=== PATIENT | male | born 1990 | race African-American/Black ===

== ENCOUNTER 2021-04-13 00:13 | Emergency (ER) | payer OTHER ==
[~2021-04-13] VITALS: Ht 177.8 cm; Wt 70.3 kg
[2021-04-13] MEDS ORDERED: ONDANSETRON 4 MG/2 ML (SDV) Z0FRAN IVP STA (00:20)
[2021-04-13] MEDS ORDERED: PANTOPRAZOLE 40 MG (PROTONIX) VIAL IV STA (00:20)
[2021-04-13] MEDS ORDERED: NS IV 1000 ML 1,000 ML IV STA (00:20)
--- NOTE | 2021-04-13 00:32 | ED General ---
General Stated Complaint: VOMITING Source of Information: Patient, EMS, Police Exam Limitations: Other (pt is poorly cooperative with exam and history) History of Present Illness Date Seen by Provider: Apr 13, 2021 Time Seen by Provider: 00:13 Initial Comments 30 yo male presents with EMS and police from [facility] having complaint of nausea, vomiting, chest tightness and burning. Patient denies medical problems but initially states he has had this happen before but when asking more details for what happened before he then denies having symptoms like this before. He has complaint of chest burning and feeling tight and it reproduces his symptoms with palpation. 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 The patient became anxious and upset and was breathing fast. He started to throw up and complain of the chest pain so the KAILEY had called his mom and asked about history for him. Per the KAILEY report the patient's mother states he has a history of ADHD, Anxiety, Bipolar, Asthma but she denies he has any cardiac disease. She told the m that this happens for him when he gets anxious and upset. Patient denies any drug or alcohol use. He is poorly cooperative with exam and history. Associated Systoms: Chest Pain; No Diaphoresis, No Fever/Chills; Nausea/Vomiting; No Rash, No Seizure; Shortness of Air; No Syncope, No Weakness Allergies and Home Medications Allergies Coded Allergies: No Known Drug Allergies (Unverified , 04/13/21) Home Medications Ondansetron 4 Mg Tab.rapdis, 4 MG PO Q6H PRN for NAUSEA/VOMITING Prescribed by: JONAS VIERA on 04/13/21 0111 Patient Home Medication List Home Medication List Reviewed: Yes Review of Systems Review of Systems Constitutional: No chills, No fever EENTM: no symptoms reported Respiratory: see HPI, short of breath Cardiovascular: chest pain (burning and tightness in chest ) Gastrointestinal: No abdominal pain; nausea, vomiting Genitourinary: no symptoms reported Musculoskeletal: other (tenderness to palpation of chest wall reproduces chest pain) Skin: no symptoms reported Psychiatric/Neurological: Anxiety Hematologic/Lymphatic: Denies Blood Clots Past Bevrsux-Fohsrh-Xxzczv Hx Past Med/Social Hx: Reviewed Nursing Past Med/Soc Hx Patient Social History Alcohol Use: Past History Smoking Status: Former Smoker (quit February 2021) Past Medical History Surgeries: No Respiratory: Yes Asthma Cardiac: No Neurological: No Genitourinary: No Gastrointestinal: No Musculoskeletal: No Endocrine: No HEENT: No Psychosocial: Yes ADD/ADHD, Anxiety, Bipolar Physical Exam Vital Signs Vital Signs - First Documented 04/13/21 00:13 Temp 36.1 Pulse 63 Resp 14 B/P (MAP) 112/64 (80) Pulse Ox 99 O2 Delivery Room Air Capillary Refill : Height, Weight, BMI Height: '" Weight: lbs. oz. kg; BMI Method: General Appearance: WD/WN, Anxious HEENT: PERRL/EOMI, Pharynx Normal Neck: Full Range of Motion, Normal Inspection, Non Tender, Supple Respiratory: Lungs Clear, Normal Breath Sounds, No Accessory Muscle Use, No Respiratory Distress, Other (tender to palpation of chest wall and reports it reproduces his chest pain) Cardiovascular: Regular Rate, Rhythm, No Edema, No Murmur, Normal Peripheral Pulses Gastrointestinal: Normal Bowel Sounds, No Pulsatile Mass, Non Tender, Soft Rectal: Deferred Extremity: Normal Capillary Refill, Normal Inspection, Normal Range of Motion, No Pedal Edema Neurologic/Psychiatric: Alert, Oriented x3, No Motor/Sensory Deficits Skin: Normal Color, Warm/Dry Progress/Results/Core Measures Suspected Sepsis SIRS Temperature: Pulse: Respiratory Rate: Laboratory Tests 04/13/21 00:25: White Blood Count 9.0 Blood Pressure / Mean: Laboratory Tests 04/13/21 00:25: Creatinine 0.98, INR Comment 1.0, Platelet Count 308, Total Bilirubin 0.2 Results/Orders Lab Results Laboratory Tests Test 04/13/21 00:25 04/13/21 00:46 Range/Units White Blood Count 9.0 4.3-11.0 10^3/uL Red Blood Count 4.41 4.35-5.85 10^6/uL Hemoglobin 14.0 13.3-17.7 G/DL Hematocrit 41 40-54 % Mean Corpuscular Volume 92 80-99 FL Mean Corpuscular Hemoglobin 32 25-34 PG Mean Corpuscular Hemoglobin Concent 34 32-36 G/DL Red Cell Distribution Width 12.8 10.0-14.5 % Platelet Count 308 130-400 10^3/uL Mean Platelet Volume 8.4 7.4-10.4 FL Immature Granulocyte % (Auto) 0 % Neutrophils (%) (Auto) 62 42-75 % Lymphocytes (%) (Auto) 25 12-44 % Monocytes (%) (Auto) 8 0-12 % Eosinophils (%) (Auto) 5 0-10 % Basophils (%) (Auto) 1 0-10 % Neutrophils # (Auto) 5.5 1.8-7.8 X 10^3 Lymphocytes # (Auto) 2.2 1.0-4.0 X 10^3 Monocytes # (Auto) 0.7 0.0-1.0 X 10^3 Eosinophils # (Auto) 0.4 H 0.0-0.3 10^3/uL Basophils # (Auto) 0.1 0.0-0.1 10^3/uL Immature Granulocyte # (Auto) 0.0 0.0-0.1 10^3/uL Prothrombin Time 13.0 12.2-14.7 SEC INR Comment 1.0 0.8-1.4 Activated Partial Thromboplast Time 29 24-35 SEC Sodium Level 138 135-145 MMOL/L Potassium Level 4.0 3.6-5.0 MMOL/L Chloride Level 105 98-107 MMOL/L Carbon Dioxide Level 25 21-32 MMOL/L Anion Gap 8 5-14 MMOL/L Blood Urea Nitrogen 17 7-18 MG/DL Creatinine 0.98 0.60-1.30 MG/DL Estimat Glomerular Filtration Rate > 60 BUN/Creatinine Ratio 17 Glucose Level 93 70-105 MG/DL Calcium Level 9.3 8.5-10.1 MG/DL Corrected Calcium 9.0 8.5-10.1 MG/DL Magnesium Level 1.8 1.6-2.4 MG/DL Total Bilirubin 0.2 0.1-1.0 MG/DL Aspartate Amino Transf (AST/SGOT) 13 5-34 U/L Alanine Aminotransferase (ALT/SGPT) 10 0-55 U/L Alkaline Phosphatase 67 40-136 U/L Troponin I < 0.30 <0.30 NG/ML Pro-B-Type Natriuretic Peptide 37.2 <75.0 PG/ML Total Protein 6.6 6.4-8.2 GM/DL Albumin 4.4 3.2-4.5 GM/DL Lipase 18 8-78 U/L Serum Alcohol < 10 <10 MG/DL Urine Color YELLOW Urine Clarity CLEAR Urine pH 6.5 5-9 Urine Specific [place] 1.015 L 1.016-1.022 Urine Protein NEGATIVE NEGATIVE Urine Glucose (UA) NEGATIVE NEGATIVE Urine Ketones NEGATIVE NEGATIVE Urine Nitrite NEGATIVE NEGATIVE Urine Bilirubin NEGATIVE NEGATIVE Urine Urobilinogen 0.2 < = 1.0 MG/DL Urine Leukocyte Esterase NEGATIVE NEGATIVE Urine RBC (Auto) NEGATIVE NEGATIVE Urine RBC 0-2 /HPF Urine WBC NONE /HPF Urine Squamous Epithelial Cells 2-5 /HPF Urine Crystals NONE /LPF Urine Bacteria TRACE /HPF Urine Casts NONE /LPF Urine Mucus NEGATIVE /LPF Urine Culture Indicated NO Urine Opiates Screen NEGATIVE NEGATIVE Urine Oxycodone Screen NEGATIVE NEGATIVE Urine Methadone Screen NEGATIVE NEGATIVE Urine Propoxyphene Screen NEGATIVE NEGATIVE Urine Barbiturates Screen NEGATIVE NEGATIVE Ur Tricyclic Antidepressants Screen NEGATIVE NEGATIVE Urine Phencyclidine Screen NEGATIVE NEGATIVE Urine Amphetamines Screen NEGATIVE NEGATIVE Urine Methamphetamines Screen NEGATIVE NEGATIVE Urine Benzodiazepines Screen NEGATIVE NEGATIVE Urine Cocaine Screen NEGATIVE NEGATIVE Urine Cannabinoids Screen POSITIVE H NEGATIVE My Orders Orders - JONAS VIERA MD Cbc With Automated Diff (04/13/21 00:20) Magnesium (04/13/21 00:20) Chest 1 View Ap/Pa Only (04/13/21 00:20) Ekg Tracing (04/13/21 00:20) Comprehensive Metabolic Panel (04/13/21 00:20) Protime With Inr (04/13/21 00:20) Partial Thromboplastin Time (04/13/21 00:20) O2 (04/13/21 00:20) Monitor-Rhythm Ecg Trace Only (04/13/21 00:20) Ed Iv/Invasive Line Start (04/13/21 00:20) Lipase (04/13/21 00:20) Troponin I Fs (04/13/21 00:20) Probnp Fs (04/13/21 00:20) Alcohol (04/13/21 00:20) Drug Screen Stat (Urine) (04/13/21 00:20) Ua Culture If Indicated (04/13/21 00:20) Ns Iv 1000 Ml (Sodium Chloride 0.9%) (04/13/21 00:20) Ondansetron Injection (Zofran Injectio (04/13/21 00:20) Pantoprazole Injection (Protonix Injecti (04/13/21 00:20) Ketorolac Injection (Toradol Injection) (04/13/21 01:05) Lorazepam Injection (Ativan Injection) (04/13/21 01:05) Orphenadrine Inj (Ed Only) (Norflex Inje (04/13/21 01:05) Vital Signs/I&O 04/13/21 04/13/21 04/13/21 00:13 00:38 01:26 Temp 36.1 Pulse 63 68 Resp 14 19 B/P (MAP) 112/64 (80) 112/66 Pulse Ox 99 99 O2 Delivery Room Air Room Air Room Air Capillary Refill : Progress Note #1: Progress Note Order labs, CXR, ECG, UA, UDS, Alcohol level, Troponin, proBNP. For his burning and tightness in chest with n/v give IVF for hydration, Zofran for n/v, Protonix for burning and pain Differential diagnosis includes malingering, myocardial infarction, anxiety, chest wall pain, gastritis, alcohol abuse, polysubstance abuse, pancreatitis Progress Note #2: Progress Note labs stable and do not show acute significant abnormality on CBC, Chemistry, Cardiac lab, alcohol, UA. UDS positive for marijuana only. CXR clear of acute process. ECG shows LVH with early repolarization changes but no ischemic changes. Pt resting comfortably in room when going to update him on results and findings. When awakened he states he is still having pain so will give Toradol, Norflex and Ativan to try and help with his chest wall pain and inflammation. He also asked to use the bathroom so he could have a bowel movement. Allowed to use restroom prior to discharge with the police. After additional medicine pt reports pain resolved prior to discharge. ECG Initial ECG Impression Date: Apr 13, 2021 Initial ECG Impression Time: 00:23 Initial ECG Rate: 87 Initial ECG Rhythm: Normal Sinus Initial ECG Comparisson: No Previous ECG Available Comment Normal sinus rhythm with a heart rate of 87 bpm. Left-ventricular hypertrophy with early repolarization changes. ND interval 160 ms. No acute ischemic ST elevation. QT interval 377 ms with a QTc interval 398 ms. There is no prior tracing available for comparison. Diagnostic Imaging Diagonstic Imaging: Xray Plain Films/CT/US/NM/MRI: chest Comments on my review of his 1 view CXR he has no acute process. No prior film for comparison. Reviewed: Reviewed by Me Departure Impression Primary Impression: Anterior chest wall pain Additional Impressions: Nausea and vomiting in adult Stress and adjustment reaction Disposition: HOME, SELF-CARE Condition: Stable Departure-Patient Inst. Decision time for Depature: 01:10 Referrals: NO,LOCAL PHYSICIAN (PCP/Family) Primary Care Physician Patient Instructions: Chest Pain, Adult ED, Nausea and Vomiting, Adult ED, Stress Add. Discharge Instructions: Medically stable to go with law enforcement for incarceration Stay well hydrated and get plenty of rest. Follow up with clinic for continued symptoms or more concerns. Follow a liquid diet for 24 hours then advance to bland foods then regular foods as your stomach tolerates over the next 2-3 days. Scripts Ondansetron (Ondansetron Odt) 4 Mg Tab.rapdis 4 MG PO Q6H PRN for NAUSEA/VOMITING for 2 Days, #8 TAB 0 Refills Prov: JONAS VIERA MD 04/13/21 JONAS VIERA MD Apr 13, 2021 00:32
[2021-04-13 00:34] LABS: HEMATOCRIT 41 % (40-54); MEAN CORPUSCULAR HEMOGLOBIN 32 PG (25-34); MEAN CORPUSCULAR HGB CONC 34 G/DL (32-36); MEAN CORPUSCULAR VOLUME 92 FL (80-99); PLATELET COUNT 308 10^3/uL (130-400)
[2021-04-13 00:35] LABS: BASOPHILS # (AUTO) 0.1 10^3/uL (0.0-0.1); BASOPHILS % (AUTO) 1 % (0-10); EOSINOPHILS # (AUTO) 0.4 10^3/uL (0.0-0.3); EOSINOPHILS % (AUTO) 5 % (0-10); LYMPHOCYTES # (AUTO) 2.2 X 10^3 (1.0-4.0); LYMPHOCYTES % (AUTO) 25 % (12-44); MEAN PLATELET VOLUME 8.4 FL (7.4-10.4); MONOCYTES # (AUTO) 0.7 X 10^3 (0.0-1.0); MONOCYTES % (AUTO) 8 % (0-12); NEUTROPHILS # (AUTO) 5.5 X 10^3 (1.8-7.8); NEUTROPHILS % (AUTO) 62 % (42-75)
[2021-04-13 00:52] LABS: CARBON DIOXIDE 25 MMOL/L (21-32); CHLORIDE 105 MMOL/L (98-107); SODIUM 138 MMOL/L (135-145)
[2021-04-13 00:53] LABS: ALANINE AMINOTRANSFERASE 10 U/L (0-55); ALBUMIN 4.4 GM/DL (3.2-4.5); ALKALINE PHOSPHATASE 67 U/L (40-136); BILIRUBIN,TOTAL 0.2 MG/DL (0.1-1.0); BUN/CREATININE RATIO 17; CALCIUM 9.3 MG/DL (8.5-10.1); CREATININE SERUM 0.98 MG/DL (0.60-1.30); GFR ESTIMATED > 60; GLUCOSE 93 MG/DL (70-105); LIPASE 18 U/L (8-78); MAGNESIUM 1.8 MG/DL (1.6-2.4); TOTAL PROTEIN 6.6 GM/DL (6.4-8.2)
[2021-04-13 00:56] LABS: BACTERIA,URINE TRACE /HPF; BILIRUBIN,URINE NEGATIVE (NEGATIVE); CLARITY,URINE CLEAR; COLOR,URINE YELLOW; GLUCOSE, URINE (UA) NEGATIVE (NEGATIVE); KETONES,URINE NEGATIVE (NEGATIVE); LEUKOCYTE ESTERASE ,URINE NEGATIVE (NEGATIVE); NITRITE,URINE NEGATIVE (NEGATIVE); PH,URINE 6.5 (5-9); PROTEIN,URINE NEGATIVE (NEGATIVE); RBC,URINE 0-2 /HPF
[2021-04-13 01:02] LABS: CANNABINOID SCREEN, URINE POSITIVE (NEGATIVE)
[2021-04-13 01:03] LABS: AMPHETAMINE SCREEN, URINE NEGATIVE (NEGATIVE); BARBITURATE SCREEN URINE NEGATIVE (NEGATIVE); BENZODIAZEPINES SCREEN URINE NEGATIVE (NEGATIVE); COCAINE SCREEN URINE NEGATIVE (NEGATIVE); METHADONE STAT NEGATIVE (NEGATIVE); METHAMPHETAMINE SCREEN URINE S NEGATIVE (NEGATIVE); OPIATE SCREEN URINE NEGATIVE (NEGATIVE); OXYCODONE STAT NEGATIVE (NEGATIVE); PROPOXYPHENE STAT NEGATIVE (NEGATIVE); TRICYCLIC ANTIDEPRESSANTS SCRE NEGATIVE (NEGATIVE)
[2021-04-13] MEDS ORDERED: ORPHENADRINE 60 MG/2 ML (NORFLEX) AMP (ED ONLY) IVP STA (01:05)
[2021-04-13] MEDS ORDERED: LORazepam INJ 2 MG/ML (ATIVAN) VIAL IVP STA (01:05)
[2021-04-13] MEDS ORDERED: KETOROLAC 30 MG/ML VIAL IVP STA (01:05)
[2021-04-13] MEDS ORDERED: ONDA4TAB11 PO (01:11)
[2021-04-13 01:26] VITALS: BP 112/66
--- NOTE | 2021-04-13 06:07 | Diagnostic Imaging Report ---
Clinical indication: Patient with complaints of vomiting and burning in chest. Exam: Portable chest x-ray upright view. Comparisons: None. Findings: Lungs/pleura: Lungs are clear. There is no pneumothorax. There is no pleural effusion. Mediastinum: Unremarkable. Pulmonary vasculature: Unremarkable. Heart: Unremarkable. Bones/extrathoracic soft tissue: Unremarkable. Impression: There is no radiographic evidence of acute cardiopulmonary process. Dictated by: Dictated on workstation # [id number]
== END 2021-04-13 01:26 | disposition home or self-care (01) ==
LOC: ER FS 00:19
DX: R07.89 Other chest pain (principal); R11.2 Nausea with vomiting, unspecified; F43.20 Adjustment disorder, unspecified; J45.909 Unspecified asthma, uncomplicated; Z87.891 Personal history of nicotine dependence
CPT/HCPCS: 36415; 71045; 80053; 80306; 81000; 83690; 83735; 83880; 84484; 85025; 85610; 85730; 93005; 93041; 99284; G0480; 80320